=== PATIENT | male | born 1955 | race Caucasian/White ===

== ENCOUNTER → 2016-12-18 | Outpatient (CLI) | payer BC, OTHER ==
--- NOTE | 2016-12-18 09:19 | CT ---
EXAMINATION TYPE: CT pelvis wo con DATE OF EXAM: 12/18/2016 7:31 AM COMPARISON: Prior CT chest abdomen pelvis 19 June 2016 HISTORY: pubic fx and sacrum fx CT DLP: 1173 mGycm Automated exposure control for dose reduction was used. FINDINGS: Helical acquisition through the pelvis. Coronal and sagittal reconstructions. There is sclerosis involving the sacrum, fracture line courses in an oblique orientation from the lev el of the L5-S1 disc space laterally towards the left at the anterior margin and extending in an ante rior to posterior direction to the level of the spinal canal, there is no evident retropulsion or sig nificant central canal stenosis. Lucency and sclerosis also present dorsal to the distal thecal sac c ompatible with healing fracture, extension of the fracture line is seen to the level of the neural fo ramina within the sacrum on the left. Findings are similar to prior exam. Bilateral hip prostheses are present. Pubic ramus fracture shows interval callus formation, cortical thickening inferiorly, the superior pubic ramus on the left shows probable nonunion. Right superior p ubic ramus shows a similar appearance. Some cortical thickening along the inferior pubic ramus on the right suggestive of fracture with healing not seen on previous exam with certainty. Umbilical hernia contains fat. IMPRESSION: SCLEROSIS SUGGESTS REACTIVE BONE CHANGE WITHIN THE SACRAL FRACTURE, PERSISTENT FRACTURE IS SUSPECTED. POSTTRAUMATIC CHANGES DESCRIBED WITH FRACTURE HEALING
== END ==
LOC: RADCTMAIN 07:10
PROVIDERS: ATTEND Orthopaedic Surgery
DX: S32.19XD Other fracture of sacrum, subsequent encounter for fracture with routine healing (principal); S32.13 Zone III fracture of sacrum; S32.502D Unspecified fracture of left pubis, subsequent encounter for fracture with routine healing
CPT/HCPCS: 72192

== ENCOUNTER → 2017-05-13 | Outpatient (CLI) | payer BC ==
--- NOTE | 2017-05-13 20:18 | ECHOF ---
Referral Reason:I48.91 unspecified atrial fib MEASUREMENTS -------- HEIGHT: 182.9 cm WEIGHT: 140.6 kg BP: 128/75 RVIDd: 3.1 cm (< 3.3) IVSd: 1.4 cm (0.6 - 1.1) LVIDd: 5.7 cm (3.9 - 5.3) LVPWd: 1.2 cm (0.6 - 1.1) IVSs: 1.8 cm LVIDs: 4.0 cm LVPWs: 1.6 cm LA Diam: 4.5 cm (2.7 - 3.8) Ao Diam: 3.8 cm (2.0 - 3.7) AV Cusp: 0.8 cm (1.5 - 2.6) LA Diam: 4.4 cm (2.7 - 3.8) MV EXCURSION: 20.521 mm (> 18.000) MV EF SLOPE: 153 mm/s (70 - 150) EPSS: 1.6 cm MV E John: 0.85 m/s MV DecT: 214 ms MV A John: 0.21 m/s MV E/A Ratio: 4.08 RAP: 5.00 mmHg RVSP: 37.31 mmHg FINDINGS -------- Sinus rhythm. Morbid Obesity This was a techncally difficult study with suboptimal views, , Definity utilized for enhancement of images. There is mild concentric left ventricular hypertrophy. Overall left ventricular systolic function is normal with, an EF between 55 - 60 %. The right ventricle is normal in size. The left atrium is mildly dilated. The right atrial size is normal. The aortic valve was not well visualized. Mild mitral annular calcification present. Mild mitral regurgitation is present. Mild tricuspid regurgitation present. There is mild pulmonary hypertension. The right ventricular systolic pressure, as measured by Doppler, is 37.31mmHg. There is no pulmonic regurgitation present. The aortic root size is normal. There is no pericardial effusion. CONCLUSIONS -------- 1. Morbid Obesity 2. There is mild pulmonary hypertension. 3. The right ventricular systolic pressure, as measured by Doppler, is 37.31mmHg. 4. This was a techncally difficult study with suboptimal views, , Definity utilized for enhancement of images. 5. There is mild concentric left ventricular hypertrophy. 6. Overall left ventricular systolic function is normal with, an EF between 55 - 60 %. 7. The left atrium is mildly dilated. 8. The aortic valve was not well visualized. 9. Mild mitral annular calcification present. 10. Mild mitral regurgitation is present. 11. Mild tricuspid regurgitation present. CHIMNEY SWEEPER: Ruby Shelley RDCS
== END | disposition home or self-care (01) ==
LOC: RADECHMAIN 12:53
PROVIDERS: ATTEND Family Medicine
DX: I08.1 Rheumatic disorders of both mitral and tricuspid valves (principal); I27.2 Other secondary pulmonary hypertension; E66.01 Morbid (severe) obesity due to excess calories; I48.91 Unspecified atrial fibrillation
CPT/HCPCS: 93306; Q9957

== ENCOUNTER 2017-06-11 07:51 | Day surgery (SDC) | payer BC ==
[2017-06-09 16:38] VITALS: BMI 40.6
[~2017-06-11 07:51] MED LIST: LACTATED RINGERS 1,000 ML IV SCH; SODIUM CHLORIDE 0.9% 1,000 ML IV SCH
[2017-06-11 08:05] VITALS: TEMP 98.2
[2017-06-11] MEDS: SODIUM CHLORIDE 0.9% 500 ML IV ONE ×2 (08:06→08:46)
[2017-06-11] MEDS ORDERED: amLODIPine 5 MG TAB PO STA (08:10)
[2017-06-11] MEDS ORDERED: amLODIPine 5 MG TAB ONE (08:13)
[2017-06-11] MEDS ORDERED: MIDAZOLAM 2 MG/2 ML VIAL IV ONE (08:27)
[2017-06-11] MEDS ORDERED: MIDAZOLAM 2 MG/2 ML VIAL ONE ×2 (08:28→10:34)
[2017-06-11] MEDS ORDERED: PROPOFOL 10 MG/ML 20 ML VIAL IV ONE ×2 (08:54→10:34)
[2017-06-11] MEDS ORDERED: ACETAMINOPHEN TAB 325 MG TAB PO PRN (09:05)
--- NOTE | 2017-06-11 09:10 | P.PCN ---
Date of Procedure: 06/11/17 Preoperative Diagnosis: Persistent atrial fibrillation Postoperative Diagnosis: Unsuccessful attempt at cardioversion Procedure(s) Performed: Cardioversion Description of Procedure: Patient was brought to the unit in a fasting state. He was prepped and draped in the usual fashion. Patient was given IV sedation by department of anesthesia. Synchronized shocks of 203 100, 360 J was applied in sequence. Patient did not convert to sinus rhythm. Patient tolerated the procedure well. Patient will be discharged with home. He'll continue current medical therapy. Follow up in the office in about one week. Final impression: #1. Unsuccessful attempt at cardioversion. Plan: Patient will be discharged home later today. Further recommendations to follow
[2017-06-11 09:19] LABS: Anion Gap 9 mmol/L; Blood Urea Nitrogen 18 mg/dL (9-20); Calcium 10.1 mg/dL (8.4-10.2); Carbon Dioxide 31 mmol/L (22-30); Chloride 101 mmol/L (98-107); Glucose 131 mg/dL (74-99); Non-African American GFR(MDRD) >60 (>60 ml/min/1.73 sqM); Potassium 4.7 mmol/L (3.5-5.1); Sodium 141 mmol/L (137-145)
[2017-06-11 09:44] VITALS: RESP 18
[2017-06-11] MEDS ORDERED: SUCCINYLCHOLINE CHLORIDE 100 MG/5 ML SYR IV ONE (10:34)
[2017-06-11] MEDS ORDERED: fentaNYL (PF) 50 MCG/ML 2 ML AMP ONE (10:34)
[2017-06-11] MEDS ORDERED: ROCURONIUM BROMIDE 10 MG/ML 10 ML VIAL IV ONE (10:34)
[2017-06-11] MEDS ORDERED: PHENYLEPHRINE-0.9% NACL SYG 1 MG/10 ML SYRINGE ONE (10:34)
[2017-06-11] MEDS ORDERED: GLYCOPYRROLATE 0.2 MG/ML 2 ML VIAL ONE (10:34)
[2017-06-11] MEDS ORDERED: NEOSTIGMINE 1 MG/ML 10 ML VIAL ONE (10:34)
[2017-06-11] MEDS ORDERED: HYDROmorphone (PF) 1 MG/ML ONE (10:34)
[2017-06-11] MEDS ORDERED: LIDOCAINE 1% INJ 10MG/ML (20 ML MDV) ONE (10:34)
[2017-06-11 10:56] VITALS: BP 121/89; PULSE 63
== END 2017-06-11 10:40 | disposition home or self-care (01) ==
LOC: CATHCVL 07:51
PROVIDERS: ATTEND Internal Medicine Cardiovascular Disease
DX: I48.1 Persistent atrial fibrillation (principal); Z79.01 Long term (current) use of anticoagulants; I10 Essential (primary) hypertension; E78.00 Pure hypercholesterolemia, unspecified; E66.9 Obesity, unspecified; Z68.30 Body mass index [BMI] 30.0-30.9, adult; E78.5 Hyperlipidemia, unspecified; Z82.49 Family history of ischemic heart disease and other diseases of the circulatory system; Z87.891 Personal history of nicotine dependence
CPT/HCPCS: 93005; 92960; 80048; J2250; J2710; J2001; J3010; J1170; J2370; J0330; J2704

== ENCOUNTER → 2017-07-03 | Outpatient (CLI) | payer BC ==
[2017-07-03 15:11] LABS: Blood Urea Nitrogen 25 mg/dL (9-20); Non-African American GFR(MDRD) >60 (>60 ml/min/1.73 sqM)
[2017-07-03 15:42] LABS: Prostate Specific Antigen 6.84 ng/mL (0.00-4.00)
--- NOTE | 2017-07-03 16:30 | CT ---
EXAMINATION TYPE: CT urogram wo/w con DATE OF EXAM: 07/03/2017 COMPARISON: NONE HISTORY: Gross hematuria x [address] DLP: 3346.00 mGycm, Automated Exposure Control for Dose Reduction was Utilized. CONTRAST: CT scan of the abdomen and pelvis is performed with oral and without and with IV Contrast, patient in jected with 100 mL of Omnipaque 300. 3-D reformats of the collecting systems, ureters and urinary saeid dder were performed at a separate workstation. FINDINGS: LUNG BASES: No significant abnormality is appreciated. Subpleural fat is incidentally noted with no focal consolidation, pleural effusion or pneumothorax and the visualized lung bases. LIVER/GB: No significant abnormality is appreciated. No radiopaque choleliths are seen on the unenh anced images. The liver enhances homogeneously without focal lesion or intrahepatic biliary ductal di latation. PANCREAS: Mild pancreatic atrophy is seen without ductal dilatation. SPLEEN: No significant abnormality is seen. Small splenule is seen adjacent to the [place] spleen. ADRENALS: Adrenal glands are symmetric with no evidence of hyperplasia or measurable nodule. KIDNEYS: The kidneys enhance and excrete symmetrically without focal mass. No evidence of nephrolithi asis is seen within either kidney. Minimal nonspecific bilateral perinephric fat stranding is appreci ated. No fascial thickening of the pararenal fat is seen or drug is fascia. No uroepithelial thickeni ng is present. Ureters excrete symmetrically without evidence of dilation. Dependent aspect of the ur inary bladder is nonvisualized due to extensive spray artifact from bilateral hip prostheses. BOWEL: No significant abnormality is seen. No bowel enlargement. LYMPH NODES: No greater than 1cm abdominal or pelvic lymph nodes are appreciated. OSSEOUS STRUCTURES: Old fracture deformity is seen of the inferior pubic rami and left superior pubic ramus. Bilateral hip prostheses are present. Mild degenerative changes are appreciated of the thorac olumbar and lumbosacral spine. OTHER: Abdominal aorta is of normal course and caliber with minimal calcific and noncalcific atheroma tous changes. Small periumbilical mesenteric fat filled hernia measures 1.9 cm. Fat filled left ingu inal hernia is present. IMPRESSION: No evidence of hydronephrosis, nephrolithiasis or renal mass. Dependent aspects of the urinary bladde r cannot be visualized due to extensive spray artifact from bilateral hip prostheses. Pelvic ultrasou nd could be performed for better visualization/evaluation of the urinary bladder.
== END | disposition home or self-care (01) ==
LOC: RADCTMAIN 14:27
PROVIDERS: ATTEND Urology
DX: R31.0 Gross hematuria (principal); Z96.643 Presence of artificial hip joint, bilateral
CPT/HCPCS: 84153; 82565; 84520; 74178; 36415; 74400; Q9967

== ENCOUNTER 2017-08-18 08:57 | Day surgery (SDC) | payer BC ==
[2017-08-11 14:21] VITALS: BMI 42.7
[2017-08-18] MEDS ORDERED: IBUTILIDE ONE (10:13)
[2017-08-18] MEDS ORDERED: PROPOFOL 10 MG/ML 20 ML VIAL IV ONE (10:13)
[2017-08-18] MEDS ORDERED: MIDAZOLAM 2 MG/2 ML VIAL ONE (10:13)
[2017-08-18] MEDS ORDERED: IBUTILIDE 1 MG in SODIUM CHLORIDE 0.9% 50 ML IVPB ONE (10:45)
[2017-08-18] MEDS ORDERED: MAGNESIUM SULFATE-D5W PMX 1 GM in DEXTROSE/WATER 1 100ML.BAG IVPB ONE (10:45)
[2017-08-18 11:17] LABS: Anion Gap 9 mmol/L; Blood Urea Nitrogen 21 mg/dL (9-20); Carbon Dioxide 30 mmol/L (22-30); Chloride 101 mmol/L (98-107); Glucose 125 mg/dL (74-99); Non-African American GFR(MDRD) >60 (>60 ml/min/1.73 sqM); Potassium 3.7 mmol/L (3.5-5.1); Sodium 140 mmol/L (137-145)
--- NOTE | 2017-08-18 11:19 | P.PCN ---
Preoperative Diagnosis: Electrical cardioversion for atrial fibrillation 360 J biphasic shock unsuccessful in the AP configuration 2 simultaneous 360 J biphasic shocks one in AP configuration and the other in anterior apical configuration unsuccessful Plan IV magnesium 1 g IV ibutilide 1 mg over 10 minutes Repeat cardioversion electrically, if needed Patient remained in atrial fibrillation with only a slight degree of organization after ibutilide infusion. Electrical cardioversion with 360 J shock failed Electrical cardioversion with 2 simultaneous 360 J shocks was successful. Post cardioversion bradycardia with resumption of normal heart rates. Sinus rhythm in the 70s Further plan Observation on telemetry after ibutilide for monitoring QT interval and for arrhythmias Hold chlorthalidone for 2-3 days Other medications including anticoagulation with xarelto BMP and TSH Condition: stable Disposition: floor
[2017-08-18] MEDS ORDERED: HYDROCORTISONE 1% CREAM 30 GM TUBE TOPICAL PRN (11:21)
[2017-08-18] MEDS ORDERED: IV FLUID CONTINUATION 1,000 ML IV ONE (11:28)
[2017-08-18] MEDS: SODIUM CHLORIDE 0.9% 1,000 ML IV SCH (17:23)
[2017-08-18] MEDS ORDERED: FLECAINIDE 50 MG TAB PO STA (18:45)
--- NOTE | 2017-08-18 18:53 | P.PN ---
Progress Note - Text Patient reevaluated. Experiencing nonsustained bursts of slow atrial tachycardia with very brief postconversion pauses of less than 1.5 seconds on telemetry Patient ambulated in the hallways several times and felt he was walking faster and was less short of breath Impression Symptomatic persistent atrial fibrillation despite rate control Status post electrical cardioversion facilitated by ibutilide 1 mg infusion We will start flecainide this evening 50 mg twice daily for suppression of atrial tachycardia Sleep apnea assessment in the next 1-2 weeks Consider A. fib ablation/pulmonary vein isolation Continue lifelong anticoagulation with Xarelto 20 mg by mouth daily
[2017-08-18] MEDS: FLECAINIDE 50 MG TAB PO SCH (19:06)
[2017-08-18] MEDS ORDERED: ACETAMINOPHEN TAB 325 MG TAB PO PRN (20:39)
[2017-08-18] MEDS ORDERED: diphenhydrAMINE 25 MG CAP PO PRN (21:24)
[2017-08-19] MEDS: SODIUM CHLORIDE 0.9% 1,000 ML IV SCH (04:03)
[2017-08-19] MEDS: FLECAINIDE 50 MG TAB PO SCH (08:30)
[2017-08-19] MEDS ORDERED: RIVAROXABAN 10 MG TAB PO SCH ×2 (09:00→17:30)
[2017-08-19] MEDS ORDERED: METOPROLOL SUCCINATE (ER) 100 MG TAB.ER.24H PO SCH (09:00)
[2017-08-19] MEDS ORDERED: ATORVASTATIN 40 MG TAB PO SCH (09:00)
[2017-08-19 09:01] VITALS: BP 139/83; PULSE 90; RESP 18; TEMP 98
--- NOTE | 2017-08-19 10:11 | P.DS ---
Providers Attending physician: Elias Monahan Primary care physician: Angel Hough [facility] Course: Some burning sensation in the skin but very mild. No actual chest discomfort. Last evening he performed the corona walk and did reasonably well. He was having short runs of slow nonsustained atrial tachycardia and I added flecainide 50 g twice daily. He is now in the 70s in sinus rhythm with occasional PACs and he performed a corona walk once again and he is breathing a lot better even when compared to last evening. No dizziness no lightheadedness On examination Blood pressure 139/83 mmHg heart rate in the 70s, afebrile 98F reduction in the nonsustained atrial tachycardia episodes on flecainide 50 g twice daily Superficial skin corona noted No chest discomfort Heart sounds are normal and regular Breath sounds are clear no rhonchi no crackles Abdomen is soft nontender No JVD Review of systems: No fever chills or rigors, no cough, phlegm or expectoration , no nausea, vomiting or diarrhea, no hematuria, dysuria, no musculoskeletal complaints, no strokes or seizures, no skin lesions. Twelve-lead ECG shows sinus rhythm normal QT interval this morning Impression Persistent atrial fibrillation resistant to treatment in the past and failed electrical cardioversion in the past Yesterday he initially failed a 720 J shock I used ibutilide and then repeated this with a total of 720 J and he converted to sinus rhythm. Thereafter he started experiencing shortness runs of nonsustained atrial tachycardia and flecainide 50 mg twice daily was initiated for suppression. This resulted in a significant improvement in his ability to exercise, the speed at which he walks and his lack of being short of breath at the end of an exercise he still has frequent PACs Hypertension, morbid obesity Suggest Hold chlorthalidone for 2 days and then resume it resume all other home medications Lifelong anticoagulation Xarelto 20 mg daily Flecainide 50 g twice daily In view of the significant improvement in his symptoms I would recommend proceeding with a pulmonary vein isolation with cryoablation and subsequently continuing flecainide 50 g twice daily for maintenance of sinus rhythm since this resulted in significant improvement in his quality of life Patient Condition at Discharge: Stable Plan - Discharge Summary Discharge Rx Participant: No New Discharge Prescriptions: New Flecainide [Tambocor] 50 mg PO Q12HR #1 tablet Continue Atorvastatin [Lipitor] 40 mg PO DAILY Acetaminophen/Diphenhydramine [Tylenol PM 500-25mg] 1 tab PO HS PRN PRN Reason: Insomnia Acetaminophen Tab [Tylenol] 325 mg PO HS PRN PRN Reason: SLEEP Rivaroxaban [Xarelto] 20 mg PO DAILY Celecoxib [CeleBREX] 200 mg PO DAILY Cholecalciferol (Vitamin D3) [Vitamin D3] 2,000 unit PO DAILY Metoprolol Succinate [Toprol XL] 100 mg PO DAILY Chlorthalidone 25 mg PO DAILY #0 Discharge Medication List Atorvastatin [Lipitor] 40 mg PO DAILY 06/19/16 [History] Acetaminophen Tab [Tylenol] 325 mg PO HS PRN 06/09/17 [History] Acetaminophen/Diphenhydramine [Tylenol PM 500-25mg] 1 tab PO HS PRN 06/09/17 [ History] Celecoxib [CeleBREX] 200 mg PO DAILY 06/09/17 [History] Cholecalciferol (Vitamin D3) [Vitamin D3] 2,000 unit PO DAILY 06/09/17 [History] Rivaroxaban [Xarelto] 20 mg PO DAILY 06/09/17 [History] Chlorthalidone 25 mg PO DAILY #0 08/18/17 [Rx] Metoprolol Succinate [Toprol XL] 100 mg PO DAILY 08/18/17 [History] Flecainide [Tambocor] 50 mg PO Q12HR #1 tablet 08/19/17 [Rx] Follow up Appointment(s)/Referral(s): Elias Monahan MD [STAFF PHYSICIAN] - 1 Week (Spoke to medical receptionist Annita. Office will call with appointment time) Jil Nguyen MD [STAFF PHYSICIAN] - 09/08/17 2:45 pm ([place] end) Patient Instructions/Handouts: Cardioversion (DC)
== END 2017-08-19 12:35 | disposition home or self-care (01) ==
LOC: CATHCVL 08:57 → 6SEL 11:20 → CATHCVL 08-19 12:35
PROVIDERS: ATTEND Internal Medicine Clinical Cardiac Electrophysiology
DX: I48.1 Persistent atrial fibrillation (principal); E78.00 Pure hypercholesterolemia, unspecified; I10 Essential (primary) hypertension; I47.1 Supraventricular tachycardia; I49.5 Sick sinus syndrome; E66.9 Obesity, unspecified; Z68.41 Body mass index [BMI] 40.0-44.9, adult; Z87.891 Personal history of nicotine dependence; Z79.01 Long term (current) use of anticoagulants; Z79.899 Other long term (current) drug therapy; Z82.49 Family history of ischemic heart disease and other diseases of the circulatory system
CPT/HCPCS: 93005; 92960; 80048; 84443; J2250; J1742; J2704

== ENCOUNTER → 2018-06-25 | Outpatient (CLI) | payer BC ==
[2018-06-25 08:33] LABS: Blood Urea Nitrogen 19 mg/dL (9-20)
--- NOTE | 2018-06-25 10:47 | CT ---
EXAMINATION TYPE: CT abdomen pelvis w con DATE OF EXAM: 06/25/2018 COMPARISON: Prior CT urogram 07/03/2017 HISTORY: Blood in urine CT DLP: 4115.8 mGycm Automated exposure control for dose reduction was used. TECHNIQUE: Helical acquisition of images from the lung bases through the pelvis have been completed. CONTRAST: Performed with Oral Contrast and with IV Contrast, patient injected with 100 mL of Isovue 300. FINDINGS: There is an umbilical hernia containing fat. LUNG BASES: No significant abnormality is appreciated. AORTA: No significant abnormality is appreciated. LIVER/GB: Liver shows low attenuation likely due to hepatic steatosis, liver is enlarged. Gallbladder is normal.. PANCREAS: No significant abnormality is seen. SPLEEN: Enlarged at 14 cm. ADRENALS: No significant abnormality is seen. KIDNEYS: Nonobstructive left renal calculus is present in the midpole measuring approximately 4 to 5 mm. Proximal left ureteral calcification is suspected measuring approximately 4 mm, there is mild lef t hydronephrosis. REPRODUCTIVE ORGANS: Prostate may be enlarged. Artifact is present due to hip prostheses. Calcificati on associated with the prostate. BOWEL: Nonspecific colonic wall thickening could be due to lack of distention or muscular hypertroph y, difficult to exclude mucosal lesion. Appendix is normal. FREE AIR: No Free Air visible. ASCITES: None visible. PELVIC ADENOPATHY: None visualized. RETROPERITONEAL ADENOPATHY: No Retroperitoneal Adenopathy visible. URINARY BLADDER: No significant abnormality is seen. OSSEOUS STRUCTURES: Suspect old trauma, fracture with healing involving pubic ramus on the left. IMPRESSION: PROXIMAL LEFT URETERAL CALCULUS WITH MILD LEFT-SIDED HYDRONEPHROSIS, THERE IS ALSO A NONOBSTRUCTIVE C ALCULUS WHICH IS DEVELOPED IN THE INTERVAL ON THE LEFT KIDNEY. 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 NONSPECIFIC FINDINGS IN THE COLON, CONSIDER BOWEL SURVEILLANCE IF IT HAS NOT BEEN PERFO RMED, AND ADDITIONAL FINDINGS ABOVE, LIMITATIONS DESCRIBED.
== END | disposition home or self-care (01) ==
LOC: RADCTMAIN 07:53
PROVIDERS: ATTEND Urology
DX: N13.2 Hydronephrosis with renal and ureteral calculous obstruction (principal); R16.0 Hepatomegaly, not elsewhere classified
CPT/HCPCS: 82565; 84520; 74177; 36415; Q9967

== ENCOUNTER → 2018-07-09 | Outpatient (CLI) | payer BC ==
--- NOTE | 2018-07-10 08:07 | NM ---
EXAMINATION TYPE: NM bone scan whole body DATE OF EXAM: 07/09/2018 COMPARISON: 06/25/2018 CT abdomen pelvis HISTORY: Prostate carcinoma Delayed whole-body scanning was performed following the injection of 26.1 mCi Tc 99m MDP. Images acq uired 4.5 hours post injection. FINDINGS: Symmetric uptake is seen of the sternoclavicular joints, chromic clavicular joints, glenohu meral joints, sacroiliac joints, throughout the spine, at the knee joint, and within the tarsals (alt brian left is greater than right within the tarsals). These findings are most likely on a degenerativ e basis. No focal suspicious uptake is seen within the axial or appendicular skeleton that is visuali zed. In this patient with prostate carcinoma specifically no asymmetric suspicious focal uptake is se en within the lumbar spine. IMPRESSION: Scintigraphic findings suggestive of arthropathic changes without suspicious focal uptake to suggest metastatic disease.
== END | disposition home or self-care (01) ==
LOC: RADNMMAIN 10:44
PROVIDERS: ATTEND Urology
DX: C61 Malignant neoplasm of prostate (principal)
CPT/HCPCS: 78306; A9503

== ENCOUNTER 2018-08-07 10:27 | Emergency (ER) | payer BC ==
[2018-08-07 10:43] VITALS: RESP 18
[2018-08-07] MEDS ORDERED: ONDANSETRON 4 MG/2 ML VIAL IVP STA (11:36)
[2018-08-07] MEDS ORDERED: SODIUM CHLORIDE 0.9% 1,000 ML IV ONE (11:36)
[2018-08-07] MEDS ORDERED: SODIUM CHLORIDE 0.9% 500 ML 500 ML IV ONE (11:36)
[2018-08-07] MEDS ORDERED: MORPHINE SULFATE 4 MG/ML SYRINGE IVP STA (11:36)
[2018-08-07] MEDS ORDERED: KETOROLAC 30 MG/ML 1 ML VIAL IVP STA (11:36)
[2018-08-07 11:53] LABS: ALT 44 U/L (21-72); AST 31 U/L (17-59); Albumin 4.4 g/dL (3.5-5.0); Alkaline Phosphatase 47 U/L (38-126); Amylase 61 U/L (30-110); Anion Gap 12 mmol/L; Blood Urea Nitrogen 24 mg/dL (9-20); Calcium 9.9 mg/dL (8.4-10.2); Carbon Dioxide 26 mmol/L (22-30); Chloride 102 mmol/L (98-107); Glucose 140 mg/dL (74-99); Lipase 94 U/L (23-300); Potassium 4.1 mmol/L (3.5-5.1); Sodium 140 mmol/L (137-145); Total Bilirubin 0.6 mg/dL (0.2-1.3); Total Protein 7.5 g/dL (6.3-8.2)
[2018-08-07 12:08] LABS: Basophils % (A) 0 %; Eosinophils # (A) 0.1 k/uL (0-0.7); Eosinophils % (A) 1 %; HCT 44.6 % (39.0-53.0); Lymphocytes # (A) 0.6 k/uL (1.0-4.8); Lymphocytes % (A) 9 %; MCH 31.3 pg (25.0-35.0); MCHC 33.7 g/dL (31.0-37.0); Monocytes # (A) 0.4 k/uL (0-1.0); Monocytes % (A) 5 %; Neutrophils # (A) 5.9 k/uL (1.3-7.7); Neutrophils % (A) 84 %; Platelet Count 184 k/uL (150-450); RBC 4.79 m/uL (4.30-5.90); RDW 13.8 % (11.5-15.5); WBC 7.1 k/uL (3.8-10.6)
[2018-08-07 12:09] LABS: Appearance,Urine Cloudy (Clear); Bilirubin,Urine Negative (Negative); Blood,Urine Large (Negative); Budding Yeast,Urine Few /hpf; Color,Urine Light Red; Glucose,Urine (UA) Negative (Negative); Hyaline Casts,Urine 8 /lpf (0-2); Ketones,Urine Negative (Negative); Leukocyte Esterase,Urine Trace (Negative); Mucus,Urine Few /hpf; Nitrite,Urine Negative (Negative); Protein,Urine 2+ (Negative); RBC,Urine >182 /hpf (0-5); Specific Gravity,Urine 1.024 (1.001-1.035); Urobilinogen,Urine <2.0 mg/dL (<2.0); WBC,Urine 6 /hpf (0-5)
--- NOTE | 2018-08-07 12:20 | XR ---
EXAMINATION TYPE: XR KUB DATE OF EXAM: 08/07/2018 12:12 PM CLINICAL HISTORY: Left-sided abdominal pain today TECHNIQUE: Two Upright KUB images of the abdomen are obtained. COMPARISON: CT abdomen pelvis June 25, 2018. FINDINGS: Scattered gas is seen in non-distended stomach and small bowel loops. Gas and fecal materia l is seen in non-distended colon. Metallic hardware from bilateral hip arthroplasty is redemonstrated . There is small 2 mm calculus left proximal ureter and larger 4 mm calculus upper to mid pole left k idney on recent CT neck clearly seen on plain films due to size and patient's body habitus. There are old left inferior lateral rib fractures redemonstrated. No pneumoperitoneum is seen. IMPRESSION: Previously visualized 2 mm proximal left ureter calculus not clearly seen and previously visualized 4 mm left renal calculus is not clearly seen . Correlate clinically.
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
[2018-08-07 13:34] VITALS: BP 142/71; PULSE 66; TEMP 98.4
== END 2018-08-07 13:34 | disposition home or self-care (01) ==
LOC: EC 10:27
DX: N20.0 Calculus of kidney (principal); R31.9 Hematuria, unspecified; I48.91 Unspecified atrial fibrillation; E78.5 Hyperlipidemia, unspecified; I10 Essential (primary) hypertension; M19.90 Unspecified osteoarthritis, unspecified site; Z79.01 Long term (current) use of anticoagulants; Z79.899 Other long term (current) drug therapy; Z87.891 Personal history of nicotine dependence
CPT/HCPCS: 36415; 80053; 82150; 83690; 85025; 81001; 87086; 74018; 99284; 96374; 96375 ×2; 96361 ×2; J2270; J2405; J1885

== ENCOUNTER → 2019-03-01 | Outpatient (CLI) | payer BC | END | disposition home or self-care (01) | LOC: LABWHC1 10:44 | PROVIDERS: ATTEND Urology | DX: C61 Malignant neoplasm of prostate (principal) | CPT/HCPCS: 36415; 84153 ==

== ENCOUNTER → 2019-06-17 | Outpatient (CLI) | payer BC | END | disposition home or self-care (01) | LOC: LABWHC1 09:48 | PROVIDERS: ATTEND Urology | DX: C61 Malignant neoplasm of prostate (principal) | CPT/HCPCS: 36415; 84153 ==

== ENCOUNTER → 2019-07-20 | Outpatient (CLI) | payer BC ==
--- NOTE | 2019-07-20 11:13 | XR ---
EXAMINATION TYPE: XR chest 2V DATE OF EXAM: 07/20/2019 COMPARISON: 08/07/2017 HISTORY: Shortness of breath and chest pain. History of atrial fibrillation. TECHNIQUE: Frontal and lateral views of the chest are obtained. FINDINGS: There is no focal air space opacity, pleural effusion, or pneumothorax seen. Pulmonary hyp erinflation with flattening of the diaphragms suggesting underlying COPD. Slightly prominent right pa ratracheal space is unchanged from 2017. Old healed left lateral rib fractures. Mild multilevel degen erative changes of the spine. The cardiac silhouette size is mildly enlarged. The osseous structur es are intact. IMPRESSION: Chronic findings with no acute cardiopulmonary process.
[2019-07-20 11:46] LABS: HCT 43.2 % (39.0-53.0); HGB 14.8 gm/dL (13.0-17.5); MCH 31.9 pg (25.0-35.0); MCHC 34.2 g/dL (31.0-37.0); MCV 93.2 fL (80.0-100.0); Mean Platelet Volume 6.3; Platelet Count 184 k/uL (150-450); RBC 4.64 m/uL (4.30-5.90); RDW 13.6 % (11.5-15.5); WBC 5.2 k/uL (3.8-10.6)
[2019-07-20 16:47] LABS: African American GFR (CKD) 109.4 (60.0-200.0); Albumin 4.7 g/dL (3.80-4.90); Albumin/Globulin Ratio 2.35 (1.60-3.17); Anion Gap 6.6 mmol/L (4.00-12.00); Calcium 9.9 mg/dL (8.7-10.3); Carbon Dioxide 32.4 mmol/L (21.6-31.8); Potassium 4.6 mmol/L (3.5-5.5); Total Bilirubin 0.7 mg/dL (0.3-1.2); Total Protein 6.7 g/dL (6.2-8.2)
== END | disposition home or self-care (01) ==
LOC: LABWHC1 09:56
PROVIDERS: ATTEND Internal Medicine Cardiovascular Disease
DX: R06.02 Shortness of breath (principal); I48.91 Unspecified atrial fibrillation
CPT/HCPCS: 36415; 71046; 80053; 83880; 85027

== ENCOUNTER → 2019-08-27 | Outpatient (CLI) | payer BC ==
[2019-08-27 17:46] LABS: African American GFR (CKD) >90 (>60 ml/min/1.73 sqM); Anion Gap 8 mmol/L; Blood Urea Nitrogen 21 mg/dL (9-20); Carbon Dioxide 33 mmol/L (22-30); Chloride 100 mmol/L (98-107); Glucose 102 mg/dL (74-99); Non-African American GFR(CKD) >90 (>60 ml/min/1.73 sqM); Potassium 4.3 mmol/L (3.5-5.1); Sodium 141 mmol/L (137-145)
== END ==
LOC: LABPAT 16:58
PROVIDERS: ATTEND Internal Medicine Clinical Cardiac Electrophysiology
DX: Z01.812 Encounter for preprocedural laboratory examination (principal); I48.19 Other persistent atrial fibrillation; E78.00 Pure hypercholesterolemia, unspecified
CPT/HCPCS: 36415; 80048

== ENCOUNTER → 2019-09-02 | Day surgery (SDC) | payer BC ==
[2019-08-31 10:43] VITALS: BMI 42.0
[~2019-09-02] MED LIST changes: +PROPOFOL 10 MG/ML 20 ML VIAL IV ONE
[2019-09-02 11:35] VITALS: RESP 18
[2019-09-02 11:38] LABS: Glucose,Whole Blood 115 mg/dL (75-99)
[2019-09-02 15:27] VITALS: PULSE 69
[2019-09-02 15:32] VITALS: BP 142/87
--- NOTE | 2019-09-02 19:18 | P.PCN ---
Preoperative Diagnosis: Diagnosis Atrial fibrillation, persistent, symptomatic with tiredness and fatigue Electrical cardioversion Successful electrical cardioversion with 2 simultaneous 360 J biphasic shocks, total 720 J Successful conversion to sinus rhythm However within 60 seconds there was recurrence of atrial fibrillation Diagnosis Immediate recurrence of atrial fibrillation Suggest Consider A. fib ablation
== END ==
LOC: CATHEP 10:46
PROVIDERS: ATTEND Internal Medicine Clinical Cardiac Electrophysiology
DX: I48.19 Other persistent atrial fibrillation (principal); I49.5 Sick sinus syndrome; E78.5 Hyperlipidemia, unspecified; I10 Essential (primary) hypertension; J44.9 Chronic obstructive pulmonary disease, unspecified; G47.33 Obstructive sleep apnea (adult) (pediatric); F17.210 Nicotine dependence, cigarettes, uncomplicated; E66.01 Morbid (severe) obesity due to excess calories; Z68.41 Body mass index [BMI] 40.0-44.9, adult; Z79.899 Other long term (current) drug therapy; Z79.01 Long term (current) use of anticoagulants; Z98.890 Other specified postprocedural states; Z90.79 Acquired absence of other genital organ(s); Z90.89 Acquired absence of other organs
CPT/HCPCS: 92960; J2704

== ENCOUNTER → 2019-09-10 | Outpatient (CLI) | payer BC | END | disposition home or self-care (01) | LOC: LABWHC1 15:12 | PROVIDERS: ATTEND Urology | DX: C61 Malignant neoplasm of prostate (principal) | CPT/HCPCS: 36415; 84153 ==

== ENCOUNTER → 2020-06-19 | Outpatient (CLI) | payer MEDICARE, BC | END | disposition home or self-care (01) | LOC: LABWHC1 15:11 | PROVIDERS: ATTEND Urology | DX: C61 Malignant neoplasm of prostate (principal) | CPT/HCPCS: 36415; 84153 ==

== ENCOUNTER → 2020-09-11 | Outpatient (CLI) | payer MEDICARE, BC ==
[2020-09-11 07:51] LABS: African American GFR (CKD) >90 (>60 ml/min/1.73 sqM); Blood Urea Nitrogen 20 mg/dL (9-20); Non-African American GFR(CKD) >90 (>60 ml/min/1.73 sqM)
--- NOTE | 2020-09-11 08:59 | CT ---
EXAMINATION TYPE: CT chest wo/w con DATE OF EXAM: 09/11/2020 COMPARISON: 07/17/2016 HISTORY: 64-year-old male R91.1, Solitary lung nodule TECHNIQUE: Contiguous axial scanning of the chest after the administration of 100 mL of Isovue 300. Coronal/sagittal reconstructions performed. CT DLP: 2668.2mGycm. Automatic exposure control utilized for a dose reduction. FINDINGS: Heart normal size without pericardial effusion. Scattered mild three-vessel coronary artery calcifica tions are present. Mild aortic valvular calcifications. Ascending aorta measures mildly aneurysmal at 4.2 cm versus 3.9 cm on 07/17/2016. Mild atheroscleroti c arch calcifications with conventional arch vessel branching anatomy. No thoracic lymphadenopathy by CT size criteria. Normal variant azygous fissure. A 3 to 4 mm pulmonary nodule posterior right midlung, axial image 38 is unchanged from 2016. No suspi cious pulmonary nodules or masses are seen. Mild to moderate central bronchial wall thickening. Mild strandy atelectasis in the lower lungs. Unch anged chronic subpleural fat deposition at the posterior lung bases. No consolidation or pleural effu nancy. Small hilar splenule in the visualized upper abdomen. Suspect tiny gallstones. No abnormal gallbladde r distention. BONES: Old bilateral rib fracture deformities. DISH within the mid to lower thoracic spine. IMPRESSION: 1. Mild to moderate central bronchial wall thickening could reflect bronchitis or chronic asthma. Raghu e mild strandy basilar atelectasis. 2. Unchanged 3 to 4 mm pulmonary nodule posterior right midlung as compared 2016 compatible with a be nign etiology. 3. Aneurysmal ascending aorta 4.2 cm (versus 3.9 cm in 2016). 4. Mild three-vessel coronary artery calcifications..
== END | disposition home or self-care (01) ==
LOC: RADCTMAIN 07:08
PROVIDERS: ATTEND Family Medicine
DX: R91.8 Other nonspecific abnormal finding of lung field (principal); I25.10 Atherosclerotic heart disease of native coronary artery without angina pectoris; I71.2 Thoracic aortic aneurysm, without rupture; R91.1 Solitary pulmonary nodule
CPT/HCPCS: 82565; 84520; 71270; 36415; Q9967

== ENCOUNTER → 2021-01-09 | Outpatient (CLI) | payer MEDICARE, BC | END | disposition home or self-care (01) | LOC: LABWHC1 14:06 | PROVIDERS: ATTEND Urology | DX: C61 Malignant neoplasm of prostate (principal) | CPT/HCPCS: 36415; 84153 ==

== ENCOUNTER → 2021-07-05 | Outpatient (CLI) | payer MEDICARE, BC | END | disposition home or self-care (01) | LOC: LABWHC1 15:17 | PROVIDERS: ATTEND Urology | DX: C61 Malignant neoplasm of prostate (principal) | CPT/HCPCS: 36415; 84153 ==

== ENCOUNTER → 2021-09-26 | Outpatient (CLI) | payer MEDICARE, BC ==
[2021-09-26 17:25] LABS: African American GFR (CKD) >90 (>60 ml/min/1.73 sqM); Blood Urea Nitrogen 24 mg/dL (9-20); Non-African American GFR(CKD) >90 (>60 ml/min/1.73 sqM)
--- NOTE | 2021-09-27 08:07 | CT ---
EXAMINATION TYPE: CT ChestAbdPelvis wo/w con DATE OF EXAM: 09/26/2021 COMPARISON: Chest CT November 12, 2019. CT abdomen and pelvis June 25, 2018 and older CTs. HISTORY: lung nodule, and aortic aneurysm CT DLP: 6594.3 mGycm. Automated Exposure Control for Dose Reduction was Utilized. CONTRAST: CT scan of the thorax, abdomen and pelvis is performed without and with IV Contrast, patient injected with 100 mL of Isovue 300. FINDINGS: LUNGS: Stable 3 mm posterior superior right lower lobe nodule axial image 35 from several prior studi es. Mild bibasilar linear scarring redemonstrated. No new greater than 5 mm pulmonary nodules. Azygos lobe/fissure is redemonstrated. There is no pleural effusion or pneumothorax seen. The tracheobron chial tree is patent. No new consolidation. MEDIASTINUM: Satisfactory enhancement of the central pulmonary arteries. Stable ascending aortic aneu rysm to 4.1 cm axial image 29. Normal three-vessel origin from the aortic arch redemonstrated. Mild p eripheral plaque in the arch extends into branch vessels There are no greater than 1 cm hilar or medi astinal lymph nodes. No cardiomegaly or pericardial effusion is seen. Coronary artery calcificatio n redemonstrated which is noted marker for underlying coronary artery disease. LIVER/GB: Liver remains diffusely low dense on noncontrast images consistent with diffuse fatty infil tration. Dependent small gallstones and/or gallbladder sludge redemonstrated. PANCREAS: No significant abnormality is seen. SPLEEN: Stable anterior splenule. ADRENALS: No significant abnormality is seen. KIDNEYS: No significant abnormality is seen. BOWEL: Oral contrast reaches level of left colon. No suspicious small or large bowel dilatation. GENITAL ORGANS: Suboptimal evaluation prostate gland due to hip arthroplasty LYMPH NODES: No greater than 1cm abdominal or pelvic lymph nodes are appreciated. OSSEOUS STRUCTURES: Metallic hardware from bilateral hip arthroplasty causes streak artifact limiting evaluation of pelvic structures. Incomplete union of superior left pelvic ramus fracture redemonstra thomas. Healed fracture inferior left pelvic ramus redemonstrated. Multilevel spurring in the spine agai n seen. OTHER: Small to moderate-size fat-containing left inguinal hernia. Mild to moderate calcified plaque of the aorta extends into branch vessels. Mild calcified plaque of the aorta extends into branch vess els. IMPRESSION: 1. Stable small pulmonary nodules presumed benign. No new or enlarging greater than 5 mm nodules. 2. Stable 4.1 cm ascending aortic aneurysm when accounting for technical differences. 3. No significant new or acute findings identified.
== END | disposition home or self-care (01) ==
LOC: RADCTMAIN 15:28
PROVIDERS: ATTEND Family Medicine
DX: I71.2 Thoracic aortic aneurysm, without rupture (principal); R91.1 Solitary pulmonary nodule
CPT/HCPCS: 82565; 84520; 71270; 74178; 36415; Q9967

== ENCOUNTER → 2022-04-19 | Outpatient (CLI) | payer MEDICARE, BC ==
[2022-04-19 14:00] LABS: Appearance,Urine Clear (Clear); Bilirubin,Urine Negative (Negative); Blood,Urine Negative (Negative); Color,Urine Yellow; Glucose,Urine (UA) Negative (Negative); Ketones,Urine Negative (Negative); Leukocyte Esterase,Urine Negative (Negative); Nitrite,Urine Negative (Negative); PH, Urine 6.5 (5.0-8.0); Protein,Urine Trace (Negative); Specific Gravity,Urine 1.025 (1.001-1.035)
[2022-04-19 17:53] LABS: Basophils # (A) 0.05 X 10*3/uL (0.00-0.10); Basophils % (A) 0.9 %; Eosinophils % (A) 1.8 %; HCT 48.1 % (39.6-50.0); HGB 15.7 g/dL (13.0-17.0); Immature Grans, Automated 0.2 %; Lymphocytes # (A) 1.24 X 10*3/uL (0.90-5.00); Lymphocytes % (A) 21.8 %; MCH 30.4 pg (27.0-32.0); MCHC 32.6 g/dL (32.0-37.0); Mean Platelet Volume 10.3 fL (9.5-12.2); Monocytes # (A) 0.58 X 10*3/uL (0.20-1.00); Monocytes % (A) 10.2 %; NRBC Per 100 WBC 0 /100 WBCS (0.0-0.0); Neutrophils % (A) 65.1 %; Platelet Count 195 X 10*3/uL (140-440); RBC 5.17 X 10*6/uL (4.40-5.60); RDW 13.5 % (11.5-14.5); WBC 5.68 X 10*3/uL (4.50-10.00)
[2022-04-19 18:40] LABS: Chol/HDL Ratio 5.08 Ratio; Creatine Kinase 39 U/L (35-257); LDL Cholesterol,Calculated 127.7 mg/dL (0.0-131.0)
[2022-04-19 18:58] LABS: ALT 29 U/L (10-49); AST 21 U/L (14-35); African American GFR (CKD) 107.1 (60.0-200.0); Albumin 4.8 g/dL (3.8-4.9); Albumin/Globulin Ratio 1.92 (1.60-3.17); Alkaline Phosphatase 49 U/L (41-126); BUN/Creat Ratio 29.75 Ratio (12.00-20.00); Blood Urea Nitrogen 23.8 mg/dL (9.0-27.0); Calcium 9.9 mg/dL (8.7-10.3); Carbon Dioxide 24.8 mmol/L (20.0-27.5); Chloride 100 mmol/L (96-109); Globulin 2.5 g/dL (1.6-3.3); Glucose 126 mg/dL (70-110); Non-African American GFR(CKD) 92.4 (60.0-200.0); PSA Annual Screen <0.014 ng/mL (0.000-4.000); Potassium 4.1 mmol/L (3.5-5.5); Sodium 142 mmol/L (135-145); Total Protein 7.3 g/dL (6.2-8.2)
[2022-04-19 19:03] LABS: Erythrocyte Sedimentation Rate 28 mm/Hr (0-20)
== END | disposition home or self-care (01) ==
LOC: LABWHC1 13:05
PROVIDERS: ATTEND Family Medicine
DX: Z12.5 Encounter for screening for malignant neoplasm of prostate (principal); I10 Essential (primary) hypertension; E78.00 Pure hypercholesterolemia, unspecified
CPT/HCPCS: 84439; 80061; 80053; 85652; 82607; 82550; 84443; 85025; 81003; 36415; G0103

== ENCOUNTER 2022-07-12 08:18 | Day surgery (SDC) | payer MEDICARE, BC ==
[2022-07-10 11:30] VITALS: BMI 42.3
[~2022-07-12 08:18] MED LIST changes: -PROPOFOL 10 MG/ML 20 ML VIAL IV ONE; -SODIUM CHLORIDE 0.9% 1,000 ML IV SCH
[2022-07-12 09:01] VITALS: TEMP 98.3
[2022-07-12] MEDS ORDERED: PROPOFOL 10 MG/ML 20 ML VIAL IV ONE (09:16)
--- NOTE | 2022-07-12 09:37 | P.PCN ---
Date of Procedure: 07/12/22 Procedure(s) Performed: BRIEF HISTORY: Patient is a 66-year-old pleasant white malescheduled for an elective colonoscopy as a part of screening for colorectal neoplasia. His last colonoscopy was 15 years ago. PROCEDURE PERFORMED: Colonoscopy with snare polypectomy. PREOPERATIVE DIAGNOSIS: Screening for colon cancer. IV sedation per Anesthesia. PROCEDURE: After informed consent was obtained, the patient, was brought into the endoscopy unit. IV sedation was administered by Anesthesia under continuous monitoring. Digital rectal examination was normal. Initially the Olympus CF-160 flexible video colonoscope was then inserted in the rectum, gradually advanced into the cecum without any difficulty. Careful examination was performed as the scope was gradually being withdrawn. Ileocecal valve and the appendiceal orifice were visualized and appeared normal. Prep was excellent. Mucosa of the cecum, ascending colon, transverse colon, descending colon, a normal. In the sigmoid there was a 1.5 cm polyp removed by snare polypectomy. Rest of the sigmoid colon, and rectum appeared normal. Retroflexion was performed in the rectum and no lesions were seen. The patient tolerated the procedure well. IMPRESSION: 1.5 cm; sigmoid polyp status post polypectomy Rest of the colon appeared normal RECOMMENDATIONS: Findings of this examination were discussed with the patient well as his family. He was advised to follow with the biopsy results. If the biopsy reveals adenoma he can have a repeat colonoscopy in 3 years..
[2022-07-12 10:18] VITALS: BP 108/74; PULSE 74; RESP 18
== END 2022-07-12 10:31 | disposition home or self-care (01) ==
LOC: ORWHC2ENDO 08:18
PROVIDERS: ATTEND Internal Medicine Gastroenterology
DX: Z12.11 Encounter for screening for malignant neoplasm of colon (principal); D12.5 Benign neoplasm of sigmoid colon; I10 Essential (primary) hypertension; I49.9 Cardiac arrhythmia, unspecified; I48.91 Unspecified atrial fibrillation; G47.33 Obstructive sleep apnea (adult) (pediatric); E66.01 Morbid (severe) obesity due to excess calories; K21.9 Gastro-esophageal reflux disease without esophagitis; Z79.899 Other long term (current) drug therapy; Z99.89 Dependence on other enabling machines and devices; Z98.890 Other specified postprocedural states; Z68.41 Body mass index [BMI] 40.0-44.9, adult
CPT/HCPCS: 88305; 45385; J2704

== ENCOUNTER → 2022-08-13 | Outpatient (CLI) | payer MEDICARE, BC | END | disposition home or self-care (01) | LOC: LABWHC1 14:11 | PROVIDERS: ATTEND Urology | DX: C61 Malignant neoplasm of prostate (principal) | CPT/HCPCS: 36415; 84153 ==

== ENCOUNTER 2022-10-18 17:17 | Emergency (ER) | payer MEDICARE, BC ==
[2022-10-18 17:22] VITALS: RESP 18; TEMP 97.5
[2022-10-18 18:07] LABS: Basophils % (A) 1 %; Eosinophils # (A) 0.1 k/uL (0-0.7); Eosinophils % (A) 2 %; HCT 43.4 % (39.0-53.0); HGB 15.2 gm/dL (13.0-17.5); Lymphocytes # (A) 1.4 k/uL (1.0-4.8); Lymphocytes % (A) 19 %; MCH 31.5 pg (25.0-35.0); Mean Platelet Volume 7.8; Monocytes # (A) 0.5 k/uL (0-1.0); Monocytes % (A) 7 %; Neutrophils # (A) 5.1 k/uL (1.3-7.7); Neutrophils % (A) 69 %; Platelet Count 176 k/uL (150-450); RBC 4.83 m/uL (4.30-5.90); WBC 7.3 k/uL (3.8-10.6)
[2022-10-18 18:13] LABS: INR 1.1 (<1.2); Prothrombin Time 11.8 sec (9.0-12.0)
[2022-10-18 18:22] LABS: Albumin 4.5 g/dL (3.5-5.0); Glucose 101 mg/dL (74-99); Total Protein 7.5 g/dL (6.3-8.2)
[2022-10-18 18:23] LABS: ALT 34 U/L (4-49); AST 22 U/L (17-59); African American GFR (CKD) >90 (>60 ml/min/1.73 sqM); Alkaline Phosphatase 49 U/L (38-126); Anion Gap 4 mmol/L; Blood Urea Nitrogen 26 mg/dL (9-20); Carbon Dioxide 33 mmol/L (22-30); Chloride 103 mmol/L (98-107); Non-African American GFR(CKD) >90 (>60 ml/min/1.73 sqM); Potassium 3.6 mmol/L (3.5-5.1); Sodium 140 mmol/L (137-145); Total Bilirubin 0.5 mg/dL (0.2-1.3)
--- NOTE | 2022-10-18 18:32 | XR ---
EXAMINATION TYPE: XR chest 2V DATE OF EXAM: 10/18/2022 6:25 PM COMPARISON: Chest radiographs from 07/20/2019 TECHNIQUE: XR chest 2V Frontal and lateral views of the chest. CLINICAL INDICATION:Male, 66 years old with history of Dizziness; FINDINGS: Lungs/Pleura: There is flattening of the diaphragm with increased lucency of the lungs. No evidence o f pneumothorax, pleural effusion or focal consolidation. Pulmonary vascularity: Unremarkable. Heart/mediastinum: Cardiomediastinal silhouette is enlarged and stable. Musculoskeletal: No acute osseous pathology. IMPRESSION: 1. No acute cardiopulmonary disease process. 2. COPD changes.
[2022-10-18 18:36] LABS: Appearance,Urine Cloudy (Clear); Bilirubin,Urine Negative (Negative); Blood,Urine Trace (Negative); Color,Urine Yellow; Glucose,Urine (UA) Negative (Negative); Ketones,Urine Negative (Negative); Leukocyte Esterase,Urine Negative (Negative); Mucus,Urine Occasional /hpf; Nitrite,Urine Negative (Negative); Protein,Urine Trace (Negative); RBC,Urine 9 /hpf (0-5); Specific Gravity,Urine 1.021 (1.001-1.035); Squamous Epithelial Cell,Urine <1 /hpf (0-4); Urobilinogen,Urine <2.0 mg/dL (<2.0); WBC,Urine 2 /hpf (0-5)
--- NOTE | 2022-10-18 18:36 | CT ---
EXAMINATION TYPE: CT brain cspine wo con CT DLP: 2754.7 mGycm, Automated exposure control for dose reduction was used. DATE OF EXAM: 10/18/2022 6:26 PM COMPARISON: 06/11/2016 CLINICAL INDICATION:Male, 66 years old with history of Dizziness and neck pain; Dizziness and neck pa in TECHNIQUE: Brain: Multiple axial CT images of the brain were obtained without IV contrast. Cspine: Axial CT images from the skull base to the inferior aspect of T2 we obtained without intraven ous contrast. Coronal and sagittal reformatted images were also reviewed. FINDINGS: Brain: Extra-axial spaces: No abnormal extra-axial fluid collections. Ventricular system: Within normal limits Cerebral parenchyma: No acute intraparenchymal hemorrhage or mass effect. The proctor-white junction is well differentiated. Cerebellum: Unremarkable. Mass effect: No evidence of midline shift. Intracranial vasculature: Atherosclerotic calcifications of the intracranial vessels. Soft tissues: Normal. Calvarium/osseous structures: No depressed skull fracture. Paranasal sinuses and mastoid air cells: Clear. Visualized orbits: Orbital contents are intact. Cervical spine: Fracture: None. Osseous structures: Multilevel degenerative disc disease changes with endplate spurring and disc oste ophyte complex's. Vertebral alignment: Within normal limits. Spinal canal/Neural Foramina: No evidence of significant spinal canal narrowing. Facet joint uncovert ebral joint arthropathy scattered throughout the cervical spine with varying degrees of neural forami nal stenosis. Neck soft tissues: Prevertebral soft tissues are within normal limits. Other: The airway is patent. The lung apices are clear. Calcification of the nuchal ligament. IMPRESSION: 1. No acute intracranial process. 2. No evidence of cervical spine fracture. 3. Mild multilevel degenerative disc disease.
[2022-10-18 18:38] LABS: Calcium 9.5 mg/dL (8.4-10.2)
[2022-10-18 18:46] LABS: Amphetamine Screen,Urine Not Detected (NotDetected); Barbiturate Screen,Urine Not Detected (NotDetected); Benzodiazepines Screen,Urine Not Detected (NotDetected); Cocaine Screen,Urine Not Detected (NotDetected); Methadone Screen, Urine Not Detected (NotDetected); Opiate Screen,Urine Not Detected (NotDetected); Oxycodone Screen, Urine Not Detected (NotDetected); Phencyclidine Screen,Urine Not Detected (NotDetected); Tricyclic Antidepressant,Urine Not Detected (NotDetected); Urn Cannabinoid Scrn Not Detected (NotDetected)
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
[2022-10-18 20:05] VITALS: BP 143/91; PULSE 84
== END 2022-10-18 20:05 | disposition home or self-care (01) ==
LOC: EC 17:17
DX: R42 Dizziness and giddiness (principal); I48.91 Unspecified atrial fibrillation; J44.9 Chronic obstructive pulmonary disease, unspecified; E78.5 Hyperlipidemia, unspecified; I10 Essential (primary) hypertension; M19.90 Unspecified osteoarthritis, unspecified site; Z79.1 Long term (current) use of non-steroidal anti-inflammatories (NSAID); Z79.899 Other long term (current) drug therapy; Z87.891 Personal history of nicotine dependence; Z20.822 Contact with and (suspected) exposure to COVID-19; Z79.01 Long term (current) use of anticoagulants
CPT/HCPCS: 36415; 70450; 71046; 72125; 80053; 80306; 81001; 83605; 84484; 85025; 85610; 87636; 93005; 99284

== ENCOUNTER → 2023-03-04 | Outpatient (CLI) | payer MEDICARE, BC ==
[2023-03-04 20:51] LABS: Creatine Kinase 45 U/L (35-257)
[2023-03-04 20:52] LABS: ALT 29 U/L (10-49); AST 20 U/L (14-35); Albumin 4.5 d/dL (3.8-4.9); Albumin/Globulin Ratio 1.88 Ratio (1.60-3.17); Alkaline Phosphatase 45 U/L (41-126); BUN/Creat Ratio 22.62 Ratio (12.00-20.00); Blood Urea Nitrogen 18.1 mg/dL (9.0-27.0); Calcium 9.9 mg/dL (8.7-10.3); Carbon Dioxide 30.8 mmol/L (21.6-31.8); Chloride 97 mmol/L (96-109); Chol/HDL Ratio 4.33 Ratio; Globulin 2.4 d/dL (1.6-3.3); Glucose 125 mg/dL (70-110); LDL Cholesterol,Calculated 109.3 mg/dL (0.0-131.0); Sodium 140 mmol/L (135-145); Total Bilirubin 0.6 mg/dL (0.3-1.2); Total Protein 6.9 d/dL (6.2-8.2)
[2023-03-04 20:57] LABS: Prostate Specific Antigen <0.14 ng/mL (0.00-4.50)
[2023-03-04 23:38] LABS: Basophils # (A) 0.05 X 10*3/uL (0.00-0.10); Basophils % (A) 0.9 %; Eosinophils # (A) 0.11 X 10*3/uL (0.04-0.35); Lymphocytes # (A) 1.11 X 10*3/uL (0.90-5.00); Lymphocytes % (A) 20.1 %; MCH 30.6 pg (27.0-32.0); MCHC 31.9 d/dL (32.0-37.0); MCV 95.9 FL (80.0-97.0); Mean Platelet Volume 11.1 FL (9.5-12.2); Monocytes # (A) 0.57 X 10*3/uL (0.20-1.00); Monocytes % (A) 10.3 %; NRBC Per 100 WBC 0 X 10*3/uL (0.00-0.01); Neutrophils # (A) 3.68 X 10*3/uL (1.80-7.70); Neutrophils % (A) 66.5 %; Platelet Count 197 X 10*3/uL (140-440); RDW 13.5 % (11.5-14.5); WBC 5.53 X 10*3/uL (4.50-10.00)
== END | disposition home or self-care (01) ==
LOC: LABWHC1 13:16
PROVIDERS: ATTEND Family Medicine
DX: Z12.5 Encounter for screening for malignant neoplasm of prostate (principal); E78.5 Hyperlipidemia, unspecified; I48.91 Unspecified atrial fibrillation
CPT/HCPCS: 36415; 80053; 80061; 82550; 83036; 84153; 84443; 85025

== ENCOUNTER → 2023-11-11 | Outpatient (CLI) | payer MEDICARE, BC ==
[2023-11-11 13:09] LABS: African American GFR (CKD) >90 (>60 ml/min/1.73 sqM); Blood Urea Nitrogen 24 mg/dL (9-20); Non-African American GFR(CKD) >90 (>60 ml/min/1.73 sqM)
--- NOTE | 2023-11-14 09:12 | CT ---
EXAMINATION TYPE: CT angio abdomen pelvis CT DLP: 2037 mGycm, Automated exposure control for dose reduction was used. DATE OF EXAM: 11/11/2023 1:57 PM COMPARISON: Multiple prior CTs most recent CT chest abdomen pelvis 09/26/2021. . CLINICAL INDICATION:Male, 67 years old with history of I71.40 AAA; PHH, abdominal aortic aneurysm wit hout rupture, prior abdomen/pelvis with contrast TECHNIQUE: CT angio abdomen pelvis performed per protocol. Unenhanced imaging through the abdomen and pelvis with multiplanar reformats. Postcontrast imaging of the abdomen and through to the mid pelvis with multiplanar reformats. 3-D reconstructed images and maximum intensity projection images were ob tained. CT Contrast: Contrast used:100 mL of Isovue 370 with IV Contrast, Oral contrast used: without Oral Contrast FINDINGS: CTA Abdomen and pelvis: Mild/moderate mixed atherosclerotic disease throughout the abdominal aorta and branches. There is mil d narrowing of the proximal celiac, superior mesenteric, bilateral renal arteries. Aorta appears mini ethel tortuous without evidence of aneurysm or dissection. Aorta at the hiatus 2.8 cm, above the jeancarlos l arteries 2.3 cm, below the renal arteries 1.7 cm. Aortic bifurcation appears patent. There is mild/ moderate mixed atherosclerotic plaque throughout the visualized common, proximal external and interna l iliac arteries without hemodynamically significant stenosis or aneurysm suggested. Non-CTA findings: There are some limitations due to the angiographic phase of imaging. LOWER CHEST: Somewhat prominent pericardial and pleural fat. No effusions. Heart size upper normal. M oderate atherosclerotic calcification of the aortic valve, visualized thoracic aorta [note the known ascending TAA not included in the scope of this exam], and coronary arteries. ABDOMEN LIVER: Unremarkable GALLBLADDER AND BILE DUCTS: Small dependent gallstones and/or sludge. No ductal dilatation. PANCREAS: Mild fatty infiltration without acute finding. SPLEEN: Unremarkable with small splenule adjacent. ADRENAL GLANDS: Minimally thickened without evidence of mass.. KIDNEYS AND URETERS: Mild bilateral perinephric stranding, appears chronic compared to prior studies. No renal/ureteral calculi or hydronephrosis. Kidneys enhance symmetrically without evidence for mass lesion. PELVIS BLADDER: Nondistended and mostly obscured by artifact from hip arthroplasties REPRODUCTIVE: Obscured by artifact. ABDOMEN & PELVIS STOMACH AND BOWEL: Stomach and small bowel are nondistended, no evidence of obstruction. The append ix is not seen with certainty but there is no inflammatory process seen in the pericecal region. Mil d/moderate stool throughout the colon. There is fatty infiltration of the ileocecal valve. Some colon ic segments are nondistended and not well assessed. There may be a few small distal colonic diverticu la without signs of diverticulitis. PERITONEUM/RETROPERITONEUM: No evidence of pneumoperitoneum or free fluid. VASCULATURE: See CTA findings above. IVC appears of normal caliber. LYMPH NODES: No gross evidence for lymphadenopathy. SOFT TISSUE/ABDOMINAL WALL: Unremarkable MUSCULOSKELETAL: No acute osseous abnormalities. Moderate disc degeneration changes are present throu ghout the thoracolumbar spine. IMPRESSION 1. Mild/moderate mixed atherosclerotic disease of the abdominal aorta and branches. No evidence of A AA or dissection. 2. Partially seen in the chest is moderate atherosclerotic calcification of the aortic valve, visuali zed thoracic aorta [note the known ascending TAA is not included in the scope of this exam], and anamaria nary arteries.
== END | disposition home or self-care (01) ==
LOC: RADCTMAIN 11:58
PROVIDERS: ATTEND Family Medicine
DX: I70.0 Atherosclerosis of aorta (principal); I71.40 Abdominal aortic aneurysm, without rupture, unspecified
CPT/HCPCS: 82565; 84520; 36415; 74174; Q9967

== ENCOUNTER → 2024-03-09 | Outpatient (CLI) | payer MEDICARE, BC ==
[2024-03-09 19:12] LABS: HCT 48.5 % (39.6-50.0); HGB 15.4 g/dL (13.0-17.0); MCH 30.7 pg (27.0-32.0); MCHC 31.8 g/dL (32.0-37.0); MCV 96.6 FL (80.0-97.0); Mean Platelet Volume 10.9 FL (9.5-12.2); NRBC Per 100 WBC 0 X 10*3/uL (0.00-0.01); Platelet Count 200 X 10*3/uL (140-440); RBC 5.02 X 10*6/uL (4.40-5.60); WBC 5.87 X 10*3/uL (4.50-10.00)
[2024-03-09 19:15] LABS: Blood Urea Nitrogen 20.3 mg/dL (9.0-27.0); Carbon Dioxide 25.6 mmol/L (21.6-31.8); Chloride 101 mmol/L (96-109); Potassium 3.8 mmol/L (3.5-5.5); Sodium 141 mmol/L (135-145)
== END | disposition home or self-care (01) ==
LOC: LABPAT 13:06
PROVIDERS: ATTEND Internal Medicine Interventional Cardiology
DX: Z01.812 Encounter for preprocedural laboratory examination (principal); I35.0 Nonrheumatic aortic (valve) stenosis
CPT/HCPCS: 80051; 82565; 84520; 85027

== ENCOUNTER 2024-03-22 06:13 | Day surgery (SDC) | payer MEDICARE, BC ==
[~2024-03-22 06:13] MED LIST changes: +ALPRAZolam 0.25 MG TAB PO PRN; +ALPRAZolam 0.5 MG TAB PO PRN; -LACTATED RINGERS 1,000 ML IV SCH; +NITROGLYCERIN SL TABS 0.4 MG TAB SUBLINGUAL PRN
[2024-03-22 07:00] LABS: Glucose,Whole Blood 144 mg/dL (70-110)
[2024-03-22] MEDS: ASPIRIN 325 MG TAB PO STA (07:03)
[2024-03-22] MEDS: SODIUM CHLORIDE 0.9% 1,000 ML IV ONE ×2 (07:04→08:23)
[2024-03-22] MEDS: SODIUM CHLORIDE 0.9% 1,000 ML in EMPTY BAG 1 BAG IV SCH (07:04)
[2024-03-22 07:08] VITALS: RESP 16; TEMP 97
[2024-03-22] MEDS ORDERED: fentaNYL (PF) 50 MCG/ML 2 ML AMP ONE (07:42)
[2024-03-22] MEDS ORDERED: HEPARIN SODIUM 1,000 UN/ML (10ML VL) ONE (07:43)
[2024-03-22] MEDS ORDERED: VERAPAMIL 2.5 MG/ML 2 ML AMP ONE (07:43)
[2024-03-22] MEDS ORDERED: LIDOCAINE 1% INJ 10MG/ML (20 ML MDV) ONE (07:43)
[2024-03-22] MEDS: BENZOCAINE SPRAY 1 CAN TOPICAL ONE (07:49)
[2024-03-22] MEDS: fentaNYL (PF) 50 MCG/ML 2 ML AMP IVP ONE (07:50)
[2024-03-22] MEDS: MIDAZOLAM 2 MG/2 ML VIAL IVP ONE ×2 (07:50→07:55)
[2024-03-22] MEDS: fentaNYL (PF) 50 MCG/1 ML VIAL IVP ONE (08:01)
--- NOTE | 2024-03-22 08:07 | P.PCN ---
Date of Procedure: 03/22/24 Operative Findings: TRANSESOPHAGEAL ECHOCARDIOGRAM TOWER EQUIPMENT INSTALLER: ABHINAV BENJAMIN MD, RPVI INDICATION: Aortic stenosis SEDATION: Conscious sedation COMPLICATION: None LEVEL OF SEDATION Moderate with sedation length of 18 minutes PROCEDURE DESCRIPTION: After obtaining an informed consent, the patient was brought to transesophageal echocardiogram room. Pulse oximetry and heart monitors were attached to the patient. The patient throat was sprayed using lidocaine. The patient was turned into left lateral position. After that a bite guard was placed. After an appropriate conscious sedation was initiated, the transesophageal echocardiogram was advanced through a bite guard into the mid esophagus. A 2-D echocardiogram images, color Doppler images, continuous wave images, pulse-wave images, of various cardiac structure were performed. After that the transesophageal echocardiogram probe was advanced into the stomach and fixed to obtain transgastric view was. The probe was brought into the mid esophagus. Inter-atrial septum was interrogated using 2D images, color Doppler images, and then contrast study. After that transesophageal echocardiogram was withdrawn out and upon withdrawing the descending thoracic aorta all the way up to the arch was evaluated. CONCLUSION: 1. Trileaflet aortic valve with aortic sclerosis and moderate aortic stenosis with a mean gradient of 30 mmHg and peak gradient of 50 mmHg 2. Normal biventricular dimension and systolic function with a EF between 55 to 60% 3. Mild mitral valve leaflet thickening with mild mitral regurgitation 4. Moderate tricuspid regurgitation 5. Trace circumferential pericardial effusion 6. Intact interatrial septum
[2024-03-22] MEDS: LIDOCAINE 1% INJ 10MG/ML (20 ML MDV) SQ ONE (08:12)
[2024-03-22] MEDS: VERAPAMIL 2.5 MG/ML 4 ML VIAL INTRAARTER ONE (08:13)
[2024-03-22] MEDS: HEPARIN SODIUM 1,000 UN/ML (10ML VL) IVP ONE (08:19)
[2024-03-22] MEDS: HEPARIN SODIUM,PORCINE (1 ML) 2,500 UNIT in SODIUM CHLORIDE 0.9% 250 ML IRRIGATION ONE (08:23)
[2024-03-22] MEDS: HEPARIN SODIUM (1,000 UNIT/ML) 1,000 UNIT in SODIUM CHLORIDE 0.9% 1,000 ML IRRIGATION ONE (08:23)
[2024-03-22] MEDS: IOPAMIDOL-370 100ML BTL INTRATHECA ONE (08:25)
[2024-03-22] MEDS ORDERED: RX INFO: IV CONTRAST WAS GIVEN 1 EACH MISC MISCELLANE PRN (08:27)
--- NOTE | 2024-03-22 08:29 | P.PCN ---
Date of Procedure: 03/22/24 Operative Findings: CARDIAC CATHETERIZATION PERFORMING PHYSICIAN: Bharat Denis MD, RPVI PROCEDURE PERFORMED: 1. Selective right and left coronary angiogram 2. Left heart catheterization 3. Ultrasound-guided access of the right radial artery INDICATION: Aortic stenosis COMPLICATION: None APPROACH: Right radial artery LEVEL OF SEDATION: Moderate with a sedation length of 16 minutes PROCEDURE DESCRIPTION: After obtaining an informed consent, the patient was brought to cardiac cath laboratory technician. Local anesthesia was performed using lidocaine subcutaneously. The right radial artery was cannulated using Seldinger technique, the guidewire passed easily, following that we advanced a 5-Maltese sheath dilator assembly, the wire and dilator were removed and sheath was flushed. Following that, 2 mg of verapamil along with 5000 unit heparin were given. Selective right and left coronary angiogram using a 6-Maltese JR4 and JL 3.5 catheters. Following that we did left heart catheterization using 6-Maltese pigtail catheter. The procedure was completed there was no complication. SELECTIVE CORONARY ANGIOGRAM: The right coronary artery: Large-caliber vessel and a dominant vessel with mild disease on Left main: Is normal The left circumflex: Large-caliber vessel nondominant vessel and appears to be angiographically normal and gives rise into the first and second obtuse marginal branch The left anterior descending artery: Large-caliber vessel with mild disease only and gives rise into first and second diagonal branch HEMODYNAMICS: The LVEDP was 12 mmHg with only 16 mm gradient across aortic valve and that was a mean gradient CONCLUSION: 1. Mild nonobstructive coronary artery disease 2. Mean gradient of 16 mmHg across aortic valve POSTPROCEDURE MANAGEMENT: Medical treatment
[2024-03-22] MEDS ORDERED: SODIUM CHLORIDE 0.9% 1,000 ML IV SCH (08:30)
[2024-03-22 13:49] VITALS: BP 127/69; PULSE 67
== END 2024-03-22 12:41 | disposition home or self-care (01) ==
LOC: CATHCVL 06:13
PROVIDERS: ATTEND Internal Medicine Interventional Cardiology
DX: I08.3 Combined rheumatic disorders of mitral, aortic and tricuspid valves (principal); I25.10 Atherosclerotic heart disease of native coronary artery without angina pectoris; I31.39 Other pericardial effusion (noninflammatory); I70.0 Atherosclerosis of aorta; I10 Essential (primary) hypertension; E78.5 Hyperlipidemia, unspecified; E66.3 Overweight; I48.21 Permanent atrial fibrillation; Z79.01 Long term (current) use of anticoagulants; Z79.899 Other long term (current) drug therapy
CPT/HCPCS: 93312; 93320; 93325; 93458; 99152; C1769; C1894; J2250; J1644 ×2; J2001; J3010 ×2; Q9967